=== PATIENT | male | born 1970 | race Caucasian/White ===

== ENCOUNTER 2017-08-14 08:47 | Emergency (ER) | payer MEDICAID ==
[2017-08-14] MEDS: ALBUTEROL 0.083% (NEB) 2.5 MG/3 ML AMP NEB ×2 (11:04→12:19)
[2017-08-14] MEDS: IPRATROPIUM (NEB) 0.5 MG/2.5 ML AMP NEB ×2 (11:04→12:19)
[2017-08-14] MEDS: predniSONE 20 MG TAB PO (11:07)
== END 2017-08-14 13:13 | disposition home or self-care (01) ==
LOC: FTE 08:47
DX: J06.9 Acute upper respiratory infection, unspecified (principal); J45.901 Unspecified asthma with (acute) exacerbation; E11.9 Type 2 diabetes mellitus without complications
CPT/HCPCS: 71045; 94640; 94664; 99284-25

== ENCOUNTER 2017-11-26 07:34 | Emergency (ER) | payer MEDICAID ==
[2017-11-26] MEDS: IBUPROFEN 800 MG TAB PO (08:11)
== END 2017-11-26 09:23 | disposition home or self-care (01) ==
LOC: FTE 07:34
DX: M25.511 Pain in right shoulder (principal); M54.2 Cervicalgia; E11.9 Type 2 diabetes mellitus without complications; J45.909 Unspecified asthma, uncomplicated
CPT/HCPCS: 72040; 73030-RT; 99284-25

== ENCOUNTER 2018-07-21 07:05 | Emergency (ER) | payer MEDICAID ==
[2018-07-21] MEDS: predniSONE 20 MG TAB PO (08:11)
[2018-07-21] MEDS: IPRATROPIUM (NEB) 0.5 MG/2.5 ML AMP NEB (08:15)
[2018-07-21] MEDS: ALBUTEROL 0.083% (NEB) 2.5 MG/3 ML AMP NEB (08:15)
== END 2018-07-21 09:52 | disposition home or self-care (01) ==
LOC: FTE 07:05
DX: J45.901 Unspecified asthma with (acute) exacerbation (principal); E11.9 Type 2 diabetes mellitus without complications
CPT/HCPCS: 94640; 94664; 99283-25